=== PATIENT | female | born 1960 | race Caucasian/White ===

== ENCOUNTER 2016-11-16 01:50 | Emergency (ER) | payer SELFPAY ==
[~2016-11-16] VITALS: Ht 142.2 cm; Wt 64.0 kg
[~2016-11-16 01:50] MED LIST: LEVO125T66; LISI-646; PROZAC; THEO80EL
[2016-11-16 02:03] VITALS: BP 151/79
== END 2016-11-16 05:33 | disposition left against medical advice (07) ==
LOC: ER 01:54
DX: R05 Cough (principal); Z53.21 Procedure and treatment not carried out due to patient leaving prior to being seen by health care provider
CPT/HCPCS: 71020

== ENCOUNTER 2016-11-17 09:19 | Inpatient (IN) | payer SELFPAY ==
[~2016-11-17] VITALS: Ht 142.2 cm; Wt 68.3 kg
[2016-11-17] MEDS ORDERED: ASPirin 81 mg TAB PO ONE ×2 (10:00→11:45)
[2016-11-17 10:39] LABS: Basophils # (auto) 0.1 uL; Basophils % (auto) 0.7 % (0.0-2.0); DEFINITIVE VIEW TRANSMISSION; Eosinophils # (auto) 0.1 uL; Eosinophils % (auto) 0.3 % (0.0-7.0); Hematocrit 35.8 % (36.0-46.0); Hemoglobin 11.8 g/dL (12.2-16.2); Lymphocytes # (auto) 2.7 uL; Lymphocytes % (auto) 14.2 % (10.0-50.0); Mean Corpuscular Hemoglobin 26.9 pg (28.0-32.0); Mean Corpuscular Hgb Conc. 32.9 g/dL (32.0-36.0); Mean Corpuscular Volume 81.8 fL (80.0-100.0); Mean Platelet Volume 8.4 fL (7.4-10.4); Monocytes # (auto) 1.1 uL; Monocytes % (auto) 5.8 % (0.0-12.0); Neutrophils # (auto) 15.2 uL; Platelet Count (auto) 351 10^3/uL (140-450); Red Cell Distribution Width 16.2 % (11.6-16.0); White Blood Cell 19.3 10^3/uL (4.4-10.8)
[2016-11-17 10:56] LABS: Albumin 2.9 g/dL (3.4-5.0); Anion Gap 12 (5-15); Aspartate Aminotransferase 16 U/L (15-37); BUN/Creatinine Ratio 16.9; Blood Urea Nitrogen 10 mg/dL (7-18); Calcium 8.2 mg/dL (8.5-10.1); Carbon Dioxide 22 mmol/L (21-32); Chloride 101 mmol/L (98-107); GFR African American 136 mL/min; GFR Non-African American 112 mL/min; Glucose 209 mg/dL (74-106); Magnesium 1.5 mg/dL (1.6-2.6); Sodium 135 mmol/L (136-145)
[2016-11-17 11:00] LABS: Alkaline Phosphatase 130 U/L (45-117); Bilirubin, Total 0.3 mg/dL (0.2-1.0); Total Protein 8.1 g/dL (6.4-8.2)
[2016-11-17] MEDS ORDERED: SODIUM CHLORIDE 0.9% 2,000 ML IV ONE (11:15)
[2016-11-17] MEDS ORDERED: LEVOFLOXACIN 500MG 100 ML IV ONE (11:15)
[2016-11-17] MEDS ORDERED: SODIUM CHLORIDE 0.9% 1,000 ML IV SCH (11:20)
[2016-11-17] MEDS ORDERED: ALBUTEROL SULF 2.5 MG/0.5ML(0.5%) NEB SOLN NEB PRN (11:30)
[2016-11-17] MEDS ORDERED: HYDROcodone-ACET 5/325MG TAB PO PRN (11:30)
[2016-11-17] MEDS ORDERED: ACETAMINOPHEN 500 MG TAB PO PRN (11:30)
[2016-11-17] MEDS ORDERED: LACTULOSE 20Gm/30ML SOLN PO PRN (11:30)
[2016-11-17] MEDS ORDERED: DEXTROSE (50%) 50ML SYRG IV PRN (11:30)
[2016-11-17] MEDS ORDERED: NITROGLYCERIN 0.4 MG SL TAB SL PRN (11:30)
[2016-11-17] MEDS ORDERED: MORPHINE SULF INJ 2 MG/ML SYRINGE 1ML IV PRN ×2 (11:30)
[2016-11-17] MEDS ORDERED: PROCHLORPERAZINE EDISYLATE 5 MG/ML 2ML VIAL IV PRN (11:30)
[2016-11-17] MEDS ORDERED: TEMAZEPAM 15 MG CAP PO PRN (11:30)
[2016-11-17] MEDS: ACCU-CHEK COMFORT CURVE STRIP VI SCH ×3 (11:43→21:30)
[2016-11-17] MEDS ORDERED: ENOXAPARIN SOD 40 MG/0.4 ML SYRINGE SC ONE (11:45)
[2016-11-17] MEDS ORDERED: METOPROLOL TARTRATE 25 MG TAB PO ONE (11:45)
[2016-11-17] MEDS: InsuLIN REG 1unit/0.01ml Soln (100units/ml) SC SCH ×3 (11:50→21:36)
[2016-11-17] MEDS ORDERED: POTASSIUM CHL 20 Meq TABLET PO ONE (12:00)
[2016-11-17] MEDS: LORazepam 0.5 MG TAB PO PRN ×2 (12:05→21:47)
[2016-11-17] MEDS: ALBUTEROL SULF 2.5 MG/0.5ML(0.5%) NEB SOLN NEB SCH ×2 (12:07→19:04)
[2016-11-17 12:16] VITALS: BP 151/83
[2016-11-17 13:14] VITALS: BP 147/76
[2016-11-17 13:39] VITALS: BP 122/76
[2016-11-17] MEDS: CLINDAMYCIN 600MG IV 50 ML IV SCH ×2 (14:27→21:07)
[2016-11-17] MEDS: SOD CHL 0.9%/ KCL 20MEQ 1,000 ML IV SCH (14:28)
[2016-11-17 16:48] VITALS: BP 154/92
[2016-11-17 20:00] VITALS: BP 154/92
[2016-11-17] MEDS: METOPROLOL TARTRATE 25 MG TAB PO SCH (21:36)
[2016-11-17 22:00] VITALS: BP 136/77
[2016-11-18] MEDS: SOD CHL 0.9%/ KCL 20MEQ 1,000 ML IV SCH ×2 (00:54→08:34)
[2016-11-18] MEDS ORDERED: SODIUM CHLORIDE 0.9 % NEB SOLN 3ML NEB ONE (05:14)
[2016-11-18 05:30] VITALS: BP 127/70
[2016-11-18] MEDS: CLINDAMYCIN 600MG IV 50 ML IV SCH (05:34)
[2016-11-18] MEDS: ACCU-CHEK COMFORT CURVE STRIP VI SCH ×2 (06:07→11:30)
[2016-11-18] MEDS: InsuLIN REG 1unit/0.01ml Soln (100units/ml) SC SCH ×2 (06:09→11:30)
[2016-11-18] MEDS: ALBUTEROL SULF 2.5 MG/0.5ML(0.5%) NEB SOLN NEB SCH ×2 (06:13)
[2016-11-18 06:19] LABS: Basophils # (auto) 0 uL; Basophils % (auto) 0.3 % (0.0-2.0); DEFINITIVE VIEW TRANSMISSION; Eosinophils # (auto) 0.3 uL; Eosinophils % (auto) 2.4 % (0.0-7.0); Hemoglobin 11.3 g/dL (12.2-16.2); Lymphocytes # (auto) 2.6 uL; Lymphocytes % (auto) 19.8 % (10.0-50.0); Mean Corpuscular Hemoglobin 26.7 pg (28.0-32.0); Mean Corpuscular Hgb Conc. 32.3 g/dL (32.0-36.0); Mean Corpuscular Volume 82.5 fL (80.0-100.0); Mean Platelet Volume 7.7 fL (7.4-10.4); Monocytes % (auto) 7.5 % (0.0-12.0); Neutrophils # (auto) 9.1 uL; Platelet Count (auto) 324 10^3/uL (140-450); Red Cell Distribution Width 16.1 % (11.6-16.0); White Blood Cell 12.9 10^3/uL (4.4-10.8)
[2016-11-18 07:25] LABS: Albumin 2.6 g/dL (3.4-5.0); Bilirubin, Total 0.2 mg/dL (0.2-1.0); Calcium 8.4 mg/dL (8.5-10.1); Potassium 3.2 mmol/L (3.5-5.1); Total Protein 8.1 g/dL (6.4-8.2)
[2016-11-18 09:17] VITALS: BP 122/92
[2016-11-18] MEDS ORDERED: LEVOFLOXACIN 500MG 100 ML IV SCH (10:00)
[2016-11-18] MEDS ORDERED: ENOXAPARIN SOD 40 MG/0.4 ML SYRINGE SC SCH (10:00)
[2016-11-18] MEDS ORDERED: ASPirin 81 mg TAB PO SCH (10:00)
[2016-11-18] MEDS: METOPROLOL TARTRATE 25 MG TAB PO SCH (10:21)
== END 2016-11-18 10:55 | disposition left against medical advice (07) | DRG 871 ==
LOC: EDBD 09:19 → ER 09:23 → TELE 09:24 → TELE-EAST 12:30
PROVIDERS: ADMIT Internal Medicine; ATTEND Internal Medicine
DX: A41.9 Sepsis, unspecified organism (principal); J18.1 Lobar pneumonia, unspecified organism; D63.8 Anemia in other chronic diseases classified elsewhere; E03.9 Hypothyroidism, unspecified; F41.9 Anxiety disorder, unspecified; I10 Essential (primary) hypertension; J45.909 Unspecified asthma, uncomplicated; F32.9 Major depressive disorder, single episode, unspecified; Z53.21 Procedure and treatment not carried out due to patient leaving prior to being seen by health care provider; E87.6 Hypokalemia; R73.9 Hyperglycemia, unspecified; Z88.0 Allergy status to penicillin; Z79.899 Other long term (current) drug therapy
CPT/HCPCS: 36415; 71010; 80053; 80061; 80307; 82550; 82962; 83036; 83605; 83735; 84484; 85025; 85379; 85652; 86141; 87040; 94640; 96365; 96372; J1815; J1956; J3490

== ENCOUNTER 2017-11-22 22:42 | Emergency (ER) | payer SELFPAY ==
[~2017-11-22] VITALS: Ht 142.2 cm; Wt 83.9 kg
[~2017-11-22 22:42] MED LIST changes: +METF-370 PO; +METF500T PO; +OMEP20CA74 PO
[2017-11-22] MEDS ORDERED: ALBUTEROL SULF 2.5 MG/0.5ML(0.5%) NEB SOLN HHN STA (22:54)
[2017-11-22 22:55] VITALS: BP 175/93
[2017-11-22 23:42] LABS: Hemoglobin 13.6 g/dL (12.2-16.2)
[2017-11-22 23:43] LABS: Basophils # (auto) 0.1 uL; Basophils % (auto) 0.5 % (0.0-2.0); Eosinophils # (auto) 1.1 uL; Eosinophils % (auto) 9.3 % (0.0-7.0); Lymphocytes # (auto) 2.6 uL; Lymphocytes % (auto) 22.7 % (10.0-50.0); Mean Corpuscular Hemoglobin 26.1 pg (28.0-32.0); Mean Corpuscular Hgb Conc. 32.4 g/dL (32.0-36.0); Mean Corpuscular Volume 80.6 fL (80.0-100.0); Monocytes # (auto) 0.6 uL; Monocytes % (auto) 5.2 % (0.0-12.0); Neutrophils # (auto) 7.2 uL; Neutrophils % (auto) 62.3 % (37.0-80.0); Platelet Count (auto) 282 10^3/uL (140-450); Red Blood Cells 5.21 10^6/uL (4.0-5.20); Red Cell Distribution Width 16.1 % (11.8-14.3); White Blood Cell 11.6 10^3/uL (4.4-10.8)
[2017-11-22 23:56] LABS: Alanine Aminotransferase 20 U/L (13-56); Albumin 3.3 g/dL (3.4-5.0); Anion Gap 10 (5-15); Aspartate Aminotransferase 17 U/L (15-37); BUN/Creatinine Ratio 21.6; Blood Urea Nitrogen 16 mg/dL (7-18); Calcium 8.7 mg/dL (8.5-10.1); Carbon Dioxide 21 mmol/L (21-32); Chloride 103 mmol/L (98-107); GFR African American 104 mL/min; GFR Non-African American 86 mL/min; Glucose 332 mg/dL (74-106); Potassium 3.5 mmol/L (3.5-5.1); Sodium 134 mmol/L (136-145)
[2017-11-22 23:59] LABS: INR 1.02 (0.9-1.15); Partial Thromboplastin Time 29.8 sec (22.64-33.71); Prothrombin Time 11.1 sec (9.37-12.3)
[2017-11-23 00:03] LABS: Alkaline Phosphatase 170 U/L (45-117); Bilirubin, Total 0.3 mg/dL (0.2-1.0); Total Protein 8.9 g/dL (6.4-8.2)
== END 2017-11-23 00:58 | disposition left against medical advice (07) ==
LOC: ER 22:42
DX: R06.02 Shortness of breath (principal); Z53.21 Procedure and treatment not carried out due to patient leaving prior to being seen by health care provider
CPT/HCPCS: 36415; 71046; 80053; 83880; 84484; 85025; 85610; 85730; 93005; 94640